=== PATIENT | male | born 1945 | race Caucasian/White ===

== ENCOUNTER 2019-10-25 13:02 | Inpatient (IN) ==
[2019-10-25] MEDS ORDERED: 0.9 % Sodium Chloride 1,000 ML IVC ONE (13:35)
[2019-10-25 13:59] LABS: Basophils % 0.5 %; Eosinophils # 0.2 K/mcL (0.0-0.6); Eosinophils % 3.3 %; Hematocrit 24.7 % (37.5-50.1); Hemoglobin 7.8 g/dL (12.9-16.9); Immature Granulocytes % 0.6 % (0-4); Lymphocytes # 0.7 K/mcL (0.6-4.6); Lymphocytes % 11.3 %; Mean Corpuscular HGB Conc 31.6 g/dL (31.6-35.5); Monocytes # 0.5 K/mcL (0.0-1.3); Neutrophils # 4.9 K/mcL (1.6-8.9); Platelet Count 156 K/mcL (140-400); Red Blood Count 2.52 M/mcL (4.19-5.50); Red Cell Distribution Width 14.2 % (11.5-14.5); Segmented Neutrophils % 76.3 %; White Blood Count 6.5 K/mcL (4.3-11.1)
[2019-10-25 14:40] LABS: Alanine Aminotransferase 12 Units/L (7-52); Albumin 3.2 g/dL (3.5-5.7); Albumin/Globulin Ratio 1.1 (1.1-2.2); Alkaline Phosphatase 143 Units/L (34-104); Aspartate Amino Transferase 18 Units/L (13-39); BUN/Creatinine Ratio 16 (6-26); Bilirubin,Total 0.8 mg/dL (0.3-1.0); Blood Urea Nitrogen 13 mg/dL (8-23); Calcium 8.3 mg/dL (8.6-10.3); Carbon Dioxide 20 mEq/L (23-29); Chloride 106 mEq/L (98-107); Globulin 2.9 g/dL (2.4-3.5); Glucose 172 mg/dL (70-105); Magnesium 1.9 mg/dL (1.6-2.6); Osmolality,Calculated 290 (280-300); Potassium 4.2 mEq/L (3.5-5.1); Sodium 138 mEq/L (136-145); Total Protein 6.1 g/dL (6.4-8.9); eGFR For African Americans > 60 (> 60); eGFR For Non-African Americans > 60 (> 60)
[2019-10-25 14:52] LABS: Bacteria,Urine Few per hpf (None-Few); Bilirubin,Urine Negative (Negative); Blood,Urine Negative (Negative); Clarity,Urine Clear (Clear); Color,Urine Yellow (Yellow); Glucose,Urine (UA) Normal (Normal); Ketones,Urine 20 mg/dL (Negative); Leukocyte Esterase,Urine Negative (Negative); Mucus,Urine Few per lpf (None-Few); Nitrite,Urine Negative (Negative); Protein,Urine Trace mg/dL (Neg-Trace); RBC,Urine 0-3 per hpf (0-3); Specific Gravity,Urine 1.015 (1.010-1.025); Squamous Epithelial Cell,Urine Few per hpf (None-Few); Urobilinogen,Urine Normal (Normal); WBC,Urine 0-3 per hpf (0-3)
[2019-10-25 15:14] LABS: Troponin I < 0.03 ng/mL (< 0.04)
[2019-10-25] MEDS ORDERED: Naloxone 0.4 MG/ML INJ IVP PRN (17:46)
[2019-10-25] MEDS ORDERED: Isovue-370 500 ML BOTTLE IVP ONE (17:53)
[2019-10-25] MEDS ORDERED: D5% in Water 1,000 ML IVC PRN (17:53)
[2019-10-25] MEDS ORDERED: Dextrose Gel 15 GM/37.5 ML TUBE PO PRN ×2 (17:53)
[2019-10-25] MEDS ORDERED: *HR* Dextrose 50 % in Water (Vial) 50 ML VIAL IVP PRN (17:53)
[2019-10-25] MEDS ORDERED: Ipratropium 1 PUFF INHALER IH PRN (17:54)
[2019-10-25] MEDS ORDERED: 0.9 % Sodium Chloride 250 ML IVC SCH (18:30)
[2019-10-25] MEDS: Metoclopramide 10 MG/10 ML UD.LIQ PO SCH (19:43)
[2019-10-25] MEDS: Insulin LISPRO 300 UNITS/3 ML VIAL SQ SCH (20:10)
[2019-10-25] MEDS: Insulin DETEMIR 100 UNIT/ML X5UNITS SQ SCH (20:10)
[2019-10-25] MEDS ORDERED: Isovue-370 500 ML BOTTLE PO ONE (20:32)
[2019-10-25] MEDS ORDERED: 0.9 % Sodium Chloride 250 ML ONE (22:08)
[2019-10-25] MEDS: Mirtazapine 15 MG TABLET PO SCH (22:15)
[2019-10-25] MEDS: Ondansetron ODT 4 MG TAB.RAPDIS SL PRN (22:15)
[2019-10-25] MEDS: *HR* OxyCODONE Immed Rel 5 MG TABLET PO PRN (22:15)
[2019-10-25] MEDS: Budesonide/Formoterol 160/4.5 1 PUFF INH IH SCH (22:36)
[2019-10-26] MEDS: Metoclopramide 10 MG/10 ML UD.LIQ PO SCH ×4 (00:26→18:10)
[2019-10-26 03:07] LABS: Hematocrit 24.6 % (37.5-50.1); Hemoglobin 7.8 g/dL (12.9-16.9); Mean Corpuscular HGB Conc 31.7 g/dL (31.6-35.5); Mean Corpuscular Hemoglobin 30.8 pg (28.0-33.3); Mean Corpuscular Volume 97.2 fL (83.0-100.0); Mean Platelet Volume 9.1 fL (9.4-12.4); Platelet Count 153 K/mcL (140-400); Red Blood Count 2.53 M/mcL (4.19-5.50); Red Cell Distribution Width 13.9 % (11.5-14.5); White Blood Count 5.6 K/mcL (4.3-11.1)
[2019-10-26 03:26] LABS: BUN/Creatinine Ratio 16 (6-26); Blood Urea Nitrogen 11 mg/dL (8-23); Calcium 7.7 mg/dL (8.6-10.3); Carbon Dioxide 23 mEq/L (23-29); Chloride 109 mEq/L (98-107); Glucose 143 mg/dL (70-105); Osmolality,Calculated 288 (280-300); Sodium 138 mEq/L (136-145); eGFR For African Americans > 60 (> 60); eGFR For Non-African Americans > 60 (> 60)
[2019-10-26] MEDS: *HR* OxyCODONE Immed Rel 5 MG TABLET PO PRN ×3 (03:28→22:14)
[2019-10-26] MEDS: Budesonide/Formoterol 160/4.5 1 PUFF INH IH SCH ×2 (08:16→21:25)
[2019-10-26 08:45] LABS: Hematocrit 25.9 % (37.5-50.1); Hemoglobin 8.1 g/dL (12.9-16.9)
[2019-10-26] MEDS: Insulin LISPRO 300 UNITS/3 ML VIAL SQ SCH ×4 (09:05→20:02)
[2019-10-26] MEDS: amLODIPine 5 MG TABLET PO SCH (09:07)
[2019-10-26] MEDS: Folic Acid 1 MG TABLET PO SCH (09:07)
[2019-10-26] MEDS: Metoprolol XL (24 HR) Succ 50 MG TAB.ER.24H PO SCH (09:07)
[2019-10-26] MEDS: Ondansetron ODT 4 MG TAB.RAPDIS SL PRN (09:07)
[2019-10-26] MEDS: Lisinopril-HCTZ 20-12.5mg TABLET PO SCH (09:07)
[2019-10-26] MEDS ORDERED: Ondansetron ODT 4 MG TAB.RAPDIS SL PRN (10:38)
[2019-10-26] MEDS: Mirtazapine 15 MG TABLET PO SCH (20:13)
[2019-10-26] MEDS: Insulin DETEMIR 100 UNIT/ML X5UNITS SQ SCH (20:13)
[2019-10-27] MEDS: Metoclopramide 10 MG/10 ML UD.LIQ PO SCH ×4 (00:04→16:45)
[2019-10-27 03:07] LABS: Basophils % 0.5 %; Eosinophils # 0.3 K/mcL (0.0-0.6); Hematocrit 24.7 % (37.5-50.1); Hemoglobin 7.7 g/dL (12.9-16.9); Immature Granulocytes % 0.7 % (0-4); Lymphocytes # 0.9 K/mcL (0.6-4.6); Lymphocytes % 15.3 %; Mean Corpuscular HGB Conc 31.2 g/dL (31.6-35.5); Mean Corpuscular Hemoglobin 30.3 pg (28.0-33.3); Mean Corpuscular Volume 97.2 fL (83.0-100.0); Monocytes # 0.6 K/mcL (0.0-1.3); Monocytes % 9.7 %; Platelet Count 152 K/mcL (140-400); Red Blood Count 2.54 M/mcL (4.19-5.50); Red Cell Distribution Width 14.1 % (11.5-14.5); Segmented Neutrophils % 68.8 %; White Blood Count 5.8 K/mcL (4.3-11.1)
[2019-10-27 03:26] LABS: BUN/Creatinine Ratio 14 (6-26); Blood Urea Nitrogen 10 mg/dL (8-23); Calcium 8.2 mg/dL (8.6-10.3); Carbon Dioxide 24 mEq/L (23-29); Chloride 106 mEq/L (98-107); Glucose 147 mg/dL (70-105); Osmolality,Calculated 288 (280-300); Potassium 3.9 mEq/L (3.5-5.1); Sodium 138 mEq/L (136-145); eGFR For African Americans > 60 (> 60); eGFR For Non-African Americans > 60 (> 60)
[2019-10-27] MEDS ORDERED: *HR* FentaNYL (PF) 100 MCG/2 ML VIAL ONE (07:37)
[2019-10-27] MEDS ORDERED: *HR* Midazolam HCl 5 MG/5 ML VIAL IVP ONE ×2 (07:37→08:22)
[2019-10-27] MEDS ORDERED: *HR* FentaNYL (PF) 100 MCG/2 ML VIAL IVP ONE (08:22)
[2019-10-27] MEDS: Insulin LISPRO 300 UNITS/3 ML VIAL SQ SCH ×4 (09:03→20:12)
[2019-10-27] MEDS: Budesonide/Formoterol 160/4.5 1 PUFF INH IH SCH ×2 (09:51→20:00)
[2019-10-27] MEDS: amLODIPine 5 MG TABLET PO SCH (10:39)
[2019-10-27] MEDS: Lisinopril-HCTZ 20-12.5mg TABLET PO SCH (10:40)
[2019-10-27] MEDS: Folic Acid 1 MG TABLET PO SCH (10:40)
[2019-10-27] MEDS: Metoprolol XL (24 HR) Succ 50 MG TAB.ER.24H PO SCH (10:40)
[2019-10-27] MEDS: *HR* OxyCODONE Immed Rel 5 MG TABLET PO PRN ×2 (10:41→16:51)
[2019-10-27] MEDS: Sucralfate 1 GM TABLET PO SCH ×2 (11:49→15:14)
[2019-10-27] MEDS ORDERED: polyethylene glycoL 3350 17 GM POWD.PACK PO ONE (15:00)
[2019-10-27] MEDS: Mirtazapine 15 MG TABLET PO SCH (20:18)
[2019-10-27] MEDS: Insulin DETEMIR 100 UNIT/ML X5UNITS SQ SCH (20:18)
[2019-10-28] MEDS: Metoclopramide 10 MG/10 ML UD.LIQ PO SCH ×2 (00:28→06:27)
[2019-10-28] MEDS: *HR* OxyCODONE Immed Rel 5 MG TABLET PO PRN (00:28)
[2019-10-28 02:51] LABS: Basophils % 0.7 %; Eosinophils # 0.3 K/mcL (0.0-0.6); Eosinophils % 5.7 %; Hematocrit 24.9 % (37.5-50.1); Hemoglobin 7.7 g/dL (12.9-16.9); Immature Granulocytes % 0.5 % (0-4); Lymphocytes % 17.5 %; Mean Corpuscular HGB Conc 30.9 g/dL (31.6-35.5); Mean Corpuscular Hemoglobin 29.8 pg (28.0-33.3); Mean Corpuscular Volume 96.5 fL (83.0-100.0); Mean Platelet Volume 8.9 fL (9.4-12.4); Monocytes # 0.6 K/mcL (0.0-1.3); Monocytes % 9.6 %; Neutrophils # 3.9 K/mcL (1.6-8.9); Platelet Count 163 K/mcL (140-400); Red Blood Count 2.58 M/mcL (4.19-5.50); Red Cell Distribution Width 13.9 % (11.5-14.5)
[2019-10-28 03:09] LABS: BUN/Creatinine Ratio 16 (6-26); Blood Urea Nitrogen 13 mg/dL (8-23); Calcium 8.1 mg/dL (8.6-10.3); Carbon Dioxide 23 mEq/L (23-29); Chloride 106 mEq/L (98-107); Glucose 156 mg/dL (70-105); Osmolality,Calculated 287 (280-300); Potassium 4.1 mEq/L (3.5-5.1); Sodium 137 mEq/L (136-145); eGFR For African Americans > 60 (> 60); eGFR For Non-African Americans > 60 (> 60)
[2019-10-28 07:45] VITALS: BP 116/70
[2019-10-28] MEDS: Budesonide/Formoterol 160/4.5 1 PUFF INH IH SCH (07:45)
[2019-10-28] MEDS: amLODIPine 5 MG TABLET PO SCH (07:52)
[2019-10-28] MEDS: Lisinopril-HCTZ 20-12.5mg TABLET PO SCH (07:53)
[2019-10-28] MEDS: Sucralfate 1 GM TABLET PO SCH (07:53)
[2019-10-28] MEDS: Insulin LISPRO 300 UNITS/3 ML VIAL SQ SCH (07:53)
[2019-10-28] MEDS: Folic Acid 1 MG TABLET PO SCH (07:53)
[2019-10-28] MEDS: Metoprolol XL (24 HR) Succ 50 MG TAB.ER.24H PO SCH (07:53)
== END 2019-10-28 13:06 | disposition home health service (06) | DRG 392 ==
LOC: 2ANU 13:02 → EMEROOARM 13:02 → SUATTDRO 18:13 → 2ANU 18:40 → SUATTDRO 10-26 13:39
PROVIDERS: ADMIT Family Medicine; ATTEND Internal Medicine
PROC: ENDOEBX (2019-10-27 08:30)